=== PATIENT | male | born 1965 | race African-American/Black ===

== ENCOUNTER 2016-10-19 15:14 | Emergency (ER) | payer BC, MEDICAID ==
[~2016-10-19] VITALS: Ht 175.3 cm; Wt 69.0 kg
[2016-10-19 18:26] VITALS: BP 110/73
[2016-10-19] MEDS ORDERED: PREDNISONE 20MG TABLET PO NR (19:00)
== END 2016-10-19 19:16 | disposition home or self-care (01) ==
LOC: ER 18:42
DX: L23.9 Allergic contact dermatitis, unspecified cause (principal); L03.113 Cellulitis of right upper limb; F17.210 Nicotine dependence, cigarettes, uncomplicated; F12.10 Cannabis abuse, uncomplicated
CPT/HCPCS: 99283; J7512

== ENCOUNTER 2017-03-30 14:42 | Emergency (ER) | payer MEDICAID, OTHER ==
[~2017-03-30] VITALS: Ht 177.8 cm; Wt 69.0 kg
[2017-03-30 15:23] VITALS: BP 136/87
== END 2017-03-30 16:16 | disposition home or self-care (01) ==
LOC: ER 16:15
DX: L03.114 Cellulitis of left upper limb (principal); F17.210 Nicotine dependence, cigarettes, uncomplicated; F12.90 Cannabis use, unspecified, uncomplicated
CPT/HCPCS: 99283

== ENCOUNTER 2023-04-30 18:12 | Inpatient (IN) | payer OTHER ==
[~2023-04-30] VITALS: Ht 177.8 cm; Wt 67.3 kg
[2023-04-30] MEDS ORDERED: SODIUM CHLORIDE 0.9% 1,000 ML IV ONE (18:30)
[2023-04-30 18:41] LABS: BASOPHILS % 0.3 % (0.0-2.0); EOSINOPHILS % 0.1 % (0.0-5.0); HEMATOCRIT. 39.9 % (42.0-52.0); HEMOGLOBIN. 13.1 g/dL (14.0-18.0); LYMPHOCYTES % 14.2 % (20.0-50.0); MEAN CORPUSCULAR HEMOGLOBIN 30.8 pg (28.0-32.0); MEAN CORPUSCULAR HGB CONC 32.8 g/dL (31.0-37.0); MEAN CORPUSCULAR VOLUME 93.8 fL (80.0-94.0); MEAN PLATELET VOLUME 7.3 fl (7.4-10.4); MONOCYTES % 5.5 % (2.0-8.0); NEUTROPHILS % 79.9 % (40.0-76.0); PLATELET 388 x1000/uL (130-400); RED BLOOD CELL COUNT 4.25 mill/uL (4.7-6.1); RED CELL DISTRIBUTION WIDTH 14.1 % (11.6-14.6); WHITE BLOOD COUNT 6.7 x1000/uL (4.5-11.0)
[2023-04-30 19:08] LABS: INR 1.1; PROTHROMBIN TIME 11.4 sec (9.6-11.0)
[2023-04-30 19:32] LABS: ALANINE AMINOTRANSFERASE 15 IU/L (10-49); ALBUMIN 4.4 g/dL (3.2-4.8); ASPARTATE AMINOTRANSFERASE 28 IU/L (<34); BILIRUBIN TOTAL 0.6 mg/dL (0.1-1.0); CALCIUM 9.3 mg/dL (8.7-10.4); CARBON DIOXIDE 25 mEq/L (21-32); CHLORIDE 107 mEq/L (98-107); CREATININE 0.9 mg/dL (0.6-1.3); ETHANOL BLOOD 36 mg/dL (<10); GLUCOSE 175 mg/dL (70-105); POTASSIUM 3.8 mEq/L (3.5-5.1); PROTEIN TOTAL 7.5 g/dL (6.0-8.3); SODIUM 145 mEq/L (136-145); UREA NITROGEN BLOOD 11 mg/dL (9-23)
[2023-04-30 20:02] LABS: LACTIC ACID 4.6 mmol/L (0.4-2.0); TROPONIN I HIGH SENSITIVITY < 4 ng/L (3.0-53)
[2023-04-30] MEDS ORDERED: CEFTRIAXONE 1GM PREMIX 50 ML IV ONE (21:15)
[2023-05-01 02:47] LABS: *AMPHETAMINES SCREEN URINE NEGATIVE (NEGATIVE); *BARBITURATES SCREEN URINE NEGATIVE (NEGATIVE); *BENZODIAZEPINES SCREEN URINE NEGATIVE (NEGATIVE); *COCAINE SCREEN URINE NEGATIVE (NEGATIVE); CANNABINOID URINE SCREEN PRESUMPTIVE POSITIVE (NEGATIVE); ECSTASY MDMA SCREEN URINE NEGATIVE (NEGATIVE); METHADONE URINE SCREEN Neg (NEGATIVE); OPIATES URINE SCREEN NEGATIVE (NEGATIVE); PHENCYCLIDINE URINE SCREEN NEGATIVE (NEGATIVE)
[2023-05-01 05:53] LABS: CLARITY URINE CLEAR (CLEAR); COLOR URINE YELLOW (YELLOW)
[2023-05-01 05:54] LABS: GLUCOSE URINE NEGATIVE (NEGATIVE); KETONES URINE 1+ (NEGATIVE); NITRITE URINE NEGATIVE (NEGATIVE); OCCULT BLOOD URINE NEGATIVE (NEGATIVE); PROTEIN URINE 1+ (NEGATIVE); SPECIFIC GRAVITY URINE 1.015 (1.005-1.030); UROBILINOGEN URINE 0.2 E.U./dL (0.2-1.0)
[2023-05-01 05:55] LABS: LEUKOCYTE ESTERASE URINE NEGATIVE (NEGATIVE)
[2023-05-01 07:44] LABS: BACTERIA URINE NONE SEEN; RBC URINE NONE SEEN /hpf (0-2); SQUAMOUS EPITHELIAL CELL URINE FEW /lpf (RARE/1+); WBC URINE 0-2 /hpf (0-2)
[2023-05-01 09:00] VITALS: BP 120/58; PULSE 58; RESP 20; TEMP 97.5
[2023-05-01 09:19] VITALS: BP 120/58; PULSE 58; RESP 20; TEMP 97.5
[2023-05-01] MEDS: SODIUM CHLORIDE 0.9% 1,000 ML IV SCH (10:43)
[2023-05-01 12:00] VITALS: BP 115/56; PULSE 81; RESP 16; TEMP 97.6
[2023-05-01 12:00] LABS: BASOPHILS % 0.7 % (0.0-2.0); EOSINOPHILS % 0.8 % (0.0-5.0); HEMATOCRIT. 37.9 % (42.0-52.0); HEMOGLOBIN. 13.1 g/dL (14.0-18.0); LYMPHOCYTES % 12.4 % (20.0-50.0); MEAN CORPUSCULAR HEMOGLOBIN 31.7 pg (28.0-32.0); MEAN CORPUSCULAR HGB CONC 34.6 g/dL (31.0-37.0); MEAN CORPUSCULAR VOLUME 91.8 fL (80.0-94.0); MEAN PLATELET VOLUME 7.2 fl (7.4-10.4); MONOCYTES % 6.8 % (2.0-8.0); NEUTROPHILS % 79.3 % (40.0-76.0); PLATELET 310 x1000/uL (130-400); RED BLOOD CELL COUNT 4.13 mill/uL (4.7-6.1); RED CELL DISTRIBUTION WIDTH 13.9 % (11.6-14.6); WHITE BLOOD COUNT 8.2 x1000/uL (4.5-11.0)
[2023-05-01 12:44] LABS: CALCIUM 8.8 mg/dL (8.7-10.4); CARBON DIOXIDE 28 mEq/L (21-32); CHLORIDE 104 mEq/L (98-107); CREATININE 0.9 mg/dL (0.6-1.3); GLUCOSE 182 mg/dL (70-105); POTASSIUM 3.5 mEq/L (3.5-5.1); SODIUM 138 mEq/L (136-145); UREA NITROGEN BLOOD 8 mg/dL (9-23)
[2023-05-01 16:00] VITALS: BP 131/75; PULSE 64; RESP 16; TEMP 98
[2023-05-01] MEDS: THIAMINE HCL 100MG TABLET PO SCH (17:21)
[2023-05-01 20:33] VITALS: BP 115/59; PULSE 66; RESP 16; TEMP 97.8
[2023-05-02] VITALS: BP 135/70; PULSE 65; RESP 20; TEMP 97.8
[2023-05-02 04:00] VITALS: BP 116/71; PULSE 64; RESP 20; TEMP 98
[2023-05-02] MEDS: SODIUM CHLORIDE 0.9% 1,000 ML IV SCH ×2 (04:44→14:01)
[2023-05-02 08:00] VITALS: BP 131/85; PULSE 77; RESP 18; TEMP 97.4
[2023-05-02] MEDS: THIAMINE HCL 100MG TABLET PO SCH (08:40)
[2023-05-02 08:41] LABS: BASOPHILS % 0.8 % (0.0-2.0); EOSINOPHILS % 2.5 % (0.0-5.0); HEMATOCRIT. 31.4 % (42.0-52.0); HEMOGLOBIN. 10.8 g/dL (14.0-18.0); LYMPHOCYTES % 21.1 % (20.0-50.0); MEAN CORPUSCULAR HEMOGLOBIN 31.6 pg (28.0-32.0); MEAN CORPUSCULAR HGB CONC 34.3 g/dL (31.0-37.0); MEAN CORPUSCULAR VOLUME 92.1 fL (80.0-94.0); MEAN PLATELET VOLUME 7.5 fl (7.4-10.4); MONOCYTES % 10.9 % (2.0-8.0); NEUTROPHILS % 64.7 % (40.0-76.0); PLATELET 264 x1000/uL (130-400); RED BLOOD CELL COUNT 3.41 mill/uL (4.7-6.1); RED CELL DISTRIBUTION WIDTH 13.8 % (11.6-14.6); WHITE BLOOD COUNT 5.2 x1000/uL (4.5-11.0)
[2023-05-02] MEDS ORDERED: ENOXAPARIN 40MG/0.4ML SYR SUBCUT SCH (09:00)
[2023-05-02 09:34] LABS: CALCIUM 7.9 mg/dL (8.7-10.4); CARBON DIOXIDE 25 mEq/L (21-32); CHLORIDE 110 mEq/L (98-107); CREATININE 0.6 mg/dL (0.6-1.3); GLUCOSE 85 mg/dL (70-105); POTASSIUM 3.6 mEq/L (3.5-5.1); SODIUM 143 mEq/L (136-145); UREA NITROGEN BLOOD 5 mg/dL (9-23)
[2023-05-02 12:00] VITALS: BP 129/78; PULSE 55; RESP 18; TEMP 97.9
[2023-05-02 15:42] VITALS: BP 128/79; PULSE 55; TEMP 97.9; O2SAT 99
== END 2023-05-02 16:45 | disposition home or self-care (01) | DRG 207 ==
LOC: ER 18:12 → MICUSO 21:03 → EDBEDREQ 21:18 → 7WST 05-01 08:35
PROVIDERS: ADMIT Internal Medicine; ATTEND Internal Medicine
DX: I95.9 Hypotension, unspecified (principal); E87.20 Acidosis, unspecified; R55 Syncope and collapse; F10.229 Alcohol dependence with intoxication, unspecified
CPT/HCPCS: 36415; 71045; 80048; 80053; 80305; 80320; 81003; 83605; 83880; 84484; 85025; 93005; 93306; 99285; J0696; J1650; J7030; G0480